=== PATIENT | male | born 1990 | race African-American/Black ===

== ENCOUNTER 2017-12-31 03:34 | Emergency (ER) | payer SELFPAY ==
[~2017-12-31] VITALS: Ht 172.7 cm; Wt 95.0 kg
[2017-12-31 06:08] VITALS: BP 125/69
== END 2017-12-31 06:11 | disposition left against medical advice (07) ==
LOC: ER 03:34
DX: Z53.21 Procedure and treatment not carried out due to patient leaving prior to being seen by health care provider (principal)
CPT/HCPCS: 99283